=== PATIENT | male | born 1970 | race Caucasian/White ===

== ENCOUNTER → 2018-08-05 | Outpatient (CLI) | payer OTHER | LOC: GMAE 10:18 | PROVIDERS: ATTEND Family Medicine | DX: D51.9 Vitamin B12 deficiency anemia, unspecified (principal); R94.5 Abnormal results of liver function studies; E29.1 Testicular hypofunction ==

== ENCOUNTER → 2019-06-08 | Outpatient (CLI) | payer OTHER | LOC: GMAJS 10:42 | PROVIDERS: ATTEND Family Medicine | DX: R53.83 Other fatigue (principal) ==